=== PATIENT | male | born 1950 | race Two or more races ===

== ENCOUNTER 2024-01-23 18:11 | Inpatient (IN) | payer OTHER ==
[~2024-01-23] VITALS: Ht 167.6 cm; Wt 91.0 kg
[~2024-01-23 18:11] MED LIST: MULT1TAB70 DIALYSATE; NIFE30TA5 DIALYSATE; THIAMINE HCL100 MG DIALYSATE; [UNRECOGNIZED DRUG - REMARK]
[2024-01-23 21:05] LABS: BASOPHILS % (AUTO) 0.4 % (0.0-2.0); EOSINOPHILS % (AUTO) 11.2 % (1.0-6.0); HEMATOCRIT 38.7 % (41-53); HEMOGLOBIN 12.7 g/dL (13.5-17.5); LYMPHOCYTES # (AUTO) 1.3 K/uL (1.0-4.8); MEAN CORPUSCULAR HEMOGLOBIN 31.2 pg (26.0-34.0); MEAN CORPUSCULAR HGB CONC 32.7 G/dL (31.0-37.0); MEAN CORPUSCULAR VOLUME 95 fL (80-100); MONOCYTES # (AUTO) 0.8 K/uL (0.1-1.0); MONOCYTES % (AUTO) 14.2 % (2.0-9.0); NEUTROPHILS # (AUTO) 3.1 K/uL (1.8-7.7); NEUTROPHILS % (AUTO) 52.2 % (40.0-70.0); PLATELET COUNT (AUTO) 148 K/uL (150-450); RED BLOOD CELL COUNT(AUTO) 4.06 MIL/uL (4.50-5.90); RED CELL DISTRIBUTION WIDTH 15.1 % (11.5-14.5)
[2024-01-23 21:17] LABS: ANION GAP 8 mmol/L (8-16); CARBON DIOXIDE 28 mmol/L (22-29); CHLORIDE 108 mmol/L (98-107); CREATININE 0.77 mg/dL (0.60-1.30); GLOMERULAR FILTR. RATE CALC > 60 mL/min (>60); GLUCOSE,RANDOM 90 mg/dL (70-110); POTASSIUM 3.7 mmol/L (3.5-5.1); SODIUM SERUM 144 mmol/L (136-145); UREA NITROGEN, BLOOD 12 mg/dL (7-18)
[2024-01-23 21:22] LABS: TROPONIN I-HIGH SENSITIVITY 20 ng/L (<76)
[2024-01-23 21:35] LABS: B-TYPE NATRIURETIC PEPTIDE 186 pg/mL (0-100)
[2024-01-23 23:39] LABS: TROPONIN I-HIGH SENSITIVITY 23 ng/L (<76)
[2024-01-23 23:40] LABS: PROTHROMBIN TIME 10.9 SEC (9.4-11.6)
[2024-01-23 23:45] LABS: LACTIC ACID 1.3 mmol/L (0.4-2.0)
[2024-01-24] MEDS: METOPROLOL TARTRATE 5 MG/5 ML VIAL IVP ONE (01:02)
[2024-01-24] MEDS: METOPROLOL TARTRATE 25 MG TABLET PO SCH (01:15)
[2024-01-24] MEDS ORDERED: ONDANSETRON HCL 4 MG/2 ML VIAL IVP PRN (01:15)
[2024-01-24] MEDS ORDERED: ACETAMINOPHEN 325 MG TABLET PO PRN (01:15)
[2024-01-24 02:05] LABS: APPEARANCE,URINE CLEAR (CLEAR); BILIRUBIN,URINE NEGATIVE (NEGATIVE); COLOR,URINE YELLOW (YELLOW); GLUCOSE, URINE (UA) NEGATIVE (NEGATIVE); KETONES,URINE NEGATIVE (NEGATIVE); LEUKOCYTE ESTERASE ,URINE NEGATIVE (NEGATIVE); NITRATE,URINE NEGATIVE (NEGATIVE); OCCULT BLOOD,URINE NEGATIVE (NEGATIVE); PROTEIN,URINE NEGATIVE (NEGATIVE); SPECIFIC GRAVITIY, URINE 1.013 (1.003-1.030)
[2024-01-24] MEDS: DOCUSATE SODIUM 100 MG CAPSULE PO SCH (09:00)
[2024-01-24] MEDS: FUROSEMIDE 20 MG/2 ML VIAL IVP SCH (09:34)
[2024-01-24] MEDS: THIAMINE 100 MG TABLET PO SCH (09:34)
[2024-01-24] MEDS: ATORVASTATIN CALCIUM 20 MG TABLET PO SCH (09:34)
[2024-01-24] MEDS: ASPIRIN 81 MG CHEWABLE TABLET PO SCH (09:34)
[2024-01-24] MEDS: HEPARIN SODIUM,PORCINE 5,000 UNITS/ML VIAL SQ SCH (09:34)
[2024-01-24 12:27] VITALS: BP 127/89; PULSE 120; RESP 18; TEMP 97.8; O2SAT 98
[2024-01-24 12:32] LABS: TROPONIN I-HIGH SENSITIVITY 17 ng/L (<76)
[2024-01-24 15:07] VITALS: BP 139/100; PULSE 101; RESP 19; TEMP 98.1; O2SAT 100
[2024-01-24 18:30] VITALS: BP 125/78; PULSE 99; RESP 18; TEMP 98.2
[2024-01-24] MEDS: DIGOXIN 250 MCG/ML 2 ML AMP IVP ONE (19:05)
[2024-01-24 19:45] VITALS: BP 134/98; PULSE 98; RESP 19; TEMP 98.8; O2SAT 98
[2024-01-24] MEDS ORDERED: METOPROLOL TARTRATE 25 MG TABLET PO SCH (21:00)
[2024-01-24] MEDS: APIXABAN 5 MG TABLET PO SCH (21:37)
[2024-01-24 23:40] VITALS: BP 108/56; PULSE 108; RESP 18; TEMP 98.4; O2SAT 97
[2024-01-25 04:00] VITALS: BP 112/66; PULSE 108; RESP 17; TEMP 98.1; O2SAT 98
[2024-01-25 07:18] LABS: BASOPHILS % (AUTO) 0.6 % (0.0-2.0); EOSINOPHILS % (AUTO) 10.2 % (1.0-6.0); HEMATOCRIT 40.9 % (41-53); HEMOGLOBIN 13.6 g/dL (13.5-17.5); LYMPHOCYTES # (AUTO) 1.4 K/uL (1.0-4.8); LYMPHOCYTES % (AUTO) 20.8 % (22.0-44.0); MEAN CORPUSCULAR HEMOGLOBIN 31.7 pg (26.0-34.0); MEAN CORPUSCULAR HGB CONC 33.2 G/dL (31.0-37.0); MEAN CORPUSCULAR VOLUME 95 fL (80-100); MONOCYTES # (AUTO) 0.9 K/uL (0.1-1.0); NEUTROPHILS # (AUTO) 3.6 K/uL (1.8-7.7); NEUTROPHILS % (AUTO) 54.4 % (40.0-70.0); PLATELET COUNT (AUTO) 152 K/uL (150-450); RED BLOOD CELL COUNT(AUTO) 4.29 MIL/uL (4.50-5.90); WHITE BLOOD COUNT (AUTO) 6.6 K/uL (4.5-11.0)
[2024-01-25 07:22] LABS: ANION GAP 8 mmol/L (8-16); CALCIUM, TOTAL 8.2 mg/dL (8.8-10.5); CARBON DIOXIDE 30 mmol/L (22-29); CHLORIDE 104 mmol/L (98-107); CREATININE 0.95 mg/dL (0.60-1.30); GLOMERULAR FILTR. RATE CALC > 60 mL/min (>60); GLUCOSE,RANDOM 95 mg/dL (70-110); SODIUM SERUM 142 mmol/L (136-145); UREA NITROGEN, BLOOD 12 mg/dL (7-18)
[2024-01-25 08:00] VITALS: BP 134/117; PULSE 107; RESP 17; TEMP 98.1; O2SAT 97
[2024-01-25 11:33] VITALS: BP 135/86; PULSE 94; RESP 20; TEMP 98.5; O2SAT 98
[2024-01-25 17:00] VITALS: BP 159/119; PULSE 159; RESP 18; TEMP 97.9; O2SAT 99
[2024-01-25 17:01] VITALS: BP 159/119; PULSE 107; RESP 18; TEMP 97.9; O2SAT 99
[2024-01-25] MEDS: METOPROLOL TARTRATE 5 MG/5 ML VIAL IVP ONE (18:24)
[2024-01-25] MEDS: DILTIAZEM HCL 30 MG TABLET PO SCH (20:35)
[2024-01-26] VITALS: BP 142/76; PULSE 90; RESP 19; O2SAT 98
[2024-01-26 04:00] VITALS: BP 132/80; RESP 19; O2SAT 96
[2024-01-26 07:39] VITALS: BP 146/86; PULSE 77; RESP 20; TEMP 98.6; O2SAT 99
[2024-01-26 11:30] VITALS: BP 128/80; PULSE 70; RESP 19; TEMP 98; O2SAT 97
[2024-01-26] MEDS ORDERED: METO50 PO (11:59)
[2024-01-26] MEDS ORDERED: APIX5TAB PO (11:59)
[2024-01-26] MEDS ORDERED: ATOR20TA65 PO (11:59)
[2024-01-26] MEDS ORDERED: FURO20 PO (12:00)
[2024-01-26] MEDS ORDERED: EMPA10TA3 PO (12:02)
[2024-01-26] MEDS ORDERED: SACU1TAB PO (12:02)
[2024-01-26 15:33] VITALS: BP 139/90; PULSE 92; RESP 20; TEMP 98; O2SAT 96
[2024-01-26 15:45] VITALS: BP 138/84; PULSE 90; RESP 18; TEMP 98.2; O2SAT 94
== END 2024-01-26 16:45 | disposition home or self-care (01) | DRG 201 ==
LOC: EMS 18:11 → EDH 01-24 11:52 → 5N 01-24 11:55
PROVIDERS: ADMIT Internal Medicine; ATTEND Internal Medicine
DX: I48.21 Permanent atrial fibrillation (principal); I50.21 Acute systolic (congestive) heart failure; I11.0 Hypertensive heart disease with heart failure; Z59.00 Homelessness unspecified; Z91.199 Patient's noncompliance with other medical treatment and regimen due to unspecified reason
CPT/HCPCS: 70450; 71045; 80048; 81003; 83605; 83735; 83880; 84145; 84484; 85025; 85610; 85730; 93005; 93306; 99285; J1160; J1644; J1940; J3490; 36415-L1; 36415-TC